=== PATIENT | male | born 1980 | race Asian ===

== ENCOUNTER 2020-10-17 23:55 | Outpatient (REF) | payer SELFPAY ==
[2020-10-19 11:29] LABS: COVID-19 RT-PCR UVMMC Result Negative (Negative)
== END 2020-10-17 23:56 | disposition home or self-care (01) ==
LOC: NCHCN 23:55
PROVIDERS: Visit Provider Nurse Practitioner Family
DX: J06.9 Acute upper respiratory infection, unspecified (principal); Z20.822 Contact with and (suspected) exposure to COVID-19
CPT/HCPCS: U0003

== ENCOUNTER 2022-04-27 18:11 | Emergency (ER) | payer BC, SELFPAY ==
[2022-04-27 18:21] VITALS: BP 143/86; PULSE 96; RESP 18; TEMP 36.7; O2SAT 96
[2022-04-27 18:26] VITALS: RESP 18
--- NOTE | 2022-04-27 18:37 | ED.GENADUL_ITS ---
Discharge Plan Disposition Patient Disposition: HOME Condition: Improving Discharge Details Clinical Impression: Hypertension Primary Care Provider: None,None ED Provider: Marino Martinez Home Meds and New Rx's Prescriptions: New loratadine [Claritin] 10 mg tablet 10 mg PO DAILY 7 Days Qty: 7 0RF pantoprazole [Protonix] 40 mg tablet,delayed release (DR/EC) 40 mg PO DAILY 30 Days Qty: 30 0RF Discharge Instructions Instructions: Hypertension (ED), DASH Eating Plan (ED) Additional Instructions: Continue to decrease cigarette use. Decrease salt in the diet, decrease fat in your diet. You need to increase use of fruits and vegetables and hydration. See enclosed information regarding the Dash diet. We will arrange follow-up for you in the community to establish care. Begin 30 minutes of exercise per day. Take Protonix as prescribed for 30 days. No eating 2 hours prior to bedtime. May use Benadryl 25 mg at bedtime for decongestion and Claritin as prescribed daily for 1 week. Medical Decision Making 41-year-old male presents with throbbing in his ears at home. He is worried for elevated blood pressure as he has had similar in the past and weaned off his medication 2 years ago without reestablishing care following his move to [place]. Is (143/86 he is well-appearing. His BMI is initially 38 with a weight of 100 and 0.5 kg. Discussed with him that his exam reveals fluid-filled sinuses, he describes history of GERD and some chronic cough. I will trial him on antacid as well as decongestant. We will arrange follow-up in the community to establish care. He will observe and improve diet, decrease his cigarette use and salt use. He is given information regarding the Dash diet. HPI General Mode of arrival: ambulatory . Date/Time Provider Initiated Documentation: 04/27/22 18:14 . Limitations to Documentation: no limitations . Information obtained by: patient and family . History of Present Illness 41 year old M presents to the emergency department with the chief complaint of Elevated blood pressure, described as mild, and is localized to the head and left. Patient reports no radiation. Patient started experiencing this hour(s) and it has been now resolved. No relieving factors improve symptom(s), No exacerbating factors reported . Patient notes no other symptoms.; denies chest pain, headaches, loss of appetite, nausea/vomiting, shortness of breath and weakness. Patient did receive the following treatmen ts prior to arrival, none Related Data Home Medications Medication Instructions Recorded Confirmed loratadine 10 mg tablet (Claritin) 10 mg PO DAILY 7 days #7 tabs 04/27/22 pantoprazole 40 mg tablet,delayed 40 mg PO DAILY 30 days #30 tabs 04/27/22 release (Protonix) Previous Rx's Medication Instructions Recorded loratadine 10 mg tablet (Claritin) 10 mg PO DAILY 7 days #7 tabs 04/27/22 pantoprazole 40 mg tablet,delayed 40 mg PO DAILY 30 days #30 tabs 04/27/22 release (Protonix) Allergies Allergy/AdvReac Type Severity Reaction Status Date / Time No Known Allergies Allergy Unverified 04/27/22 18:24 General Stated Complaint: GenMedical KIERA: 3 Review of Systems Narrative: Chronic cough and GERD. Used to take pressure medications. Has been observing a poor diet with high fat and salt. 7 systems reviewed and otherwise negative. See HPI. PFSH All Active Problems (Updated 04/27/22 @ 18:40 by Marino Martinez MD) Hypertension (Chronic) Social History Smoking/Tobacco Use Status: Current-Occasional Tobacco Type: cigarettes Smoking risk assessment performed?: Yes Alcohol Intake: current Alcohol Intake frequency: holidays/special occasions only Drug use: Never Substance use type: does not use Do you feel safe at home: Yes Do you feel safe in your relationship?: Yes Exam Narrative Exam Narrative: GEN: awake, alert, oriented 3. Pleasant, well groomed, interactive. HEAD: Normocephalic, atraumatic ENT: Mucous membranes moist, oropharynx unremarkable, left than right tympanic membranes are distended and fluid-filled, no significant erythema. EYES: PERRL, EOMI NECK: Full ROM, no ARIA, no menigismus CHEST/RESP: Nontender, clear to auscultation bilateral, no wheeze/rhonchi/rales CARDIOVASCULAR: RRR, no murmur, rub beatrice. 2+ Rad pulse bilateral ABDOMEN: Soft, nontender, no mass. +Bowel sounds EXT: Full ROM, no edema, no rash Neuro: Grossly normal neurologic exam, conversant, interactive. Psych: Speech fluent, thoughts congruent, affect normal Course Vital Signs Vital signs: Vital Signs Temperature 36.7 C 04/27/22 18:21 Pulse 96 H 04/27/22 18:21 Respiratory Rate 18 04/27/22 18:21 Blood Pressure 143/86 H 04/27/22 18:21 Pulse Oximetry 96 04/27/22 18:21 Temperature 36.7 C 04/27/22 18:21 Pulse 96 H 04/27/22 18:21 Respiratory Rate 18 04/27/22 18:26 Respiratory Effort Non-Labored 04/27/22 18:26 Respiratory Depth Normal 04/27/22 18:26 Respiratory Pattern Normal 04/27/22 18:26 Blood Pressure 143/86 H 04/27/22 18:21 Blood Pressure Position Sitting 04/27/22 18:21 Pulse Oximetry 96 04/27/22 18:21 Oxygen Delivery Method Room Air 04/27/22 18:21 Oxygen Flow Rate 0 04/27/22 18:21
--- NOTE | 2022-04-27 18:38 | NUR.NOTE ---
Nursing Note: Referral given to Care Management needs PCP; recheck high B/P, establish care; in 2 to 4 weeks.
--- NOTE | 2022-04-30 15:48 | CMACTNOTE_ITS ---
- If Service Date Differs Date of service: 04/30/22 Time of Service: 15:48 Care Management Activity Note Jorge Luis is seen in the ED for hypertension. At the request of ED provider, DELIO coordinates a referral to CHAN Warner, of [facility], on-call provider, to assist Jorge Luis in obtaining a follow up appointment and in establishing care with a PCP. He has BCBS for insurance.
== END 2022-04-27 23:16 | disposition home or self-care (01) ==
PROVIDERS: Emergency Provider Emergency Medicine
DX: I10 Essential (primary) hypertension (principal); F17.210 Nicotine dependence, cigarettes, uncomplicated; K21.9 Gastro-esophageal reflux disease without esophagitis; R05.3 Chronic cough
CPT/HCPCS: 99283; 99284

== ENCOUNTER 2023-02-25 15:42 | Outpatient (REF) | payer BC, SELFPAY ==
[2023-02-25 15:33] LABS: ALT 33 U/L (16-63); AST 25 U/L (15-37); Albumin 4.1 g/dL (3.4-5.0); Alkaline Phosphatase 73 U/L (46-116); Anion Gap 9.2 mmol/L (3-11); BUN 14 mg/dL (7-18); Bilirubin, Total 1.1 mg/dL (0.2-1.0); CO2 26.8 mmol/L (21.0-32.0); CREATININE 1.1 mg/dL (0.70-1.30); Calcium 9.3 mg/dL (8.5-10.1); Calculated LDL 112 mg/dL (<100); Chloride 103 mmol/L (98-107); Cholesterol 199 mg/dL (<200); Estimated GFR 84.89 (mL/min/1.73m2); Glucose 103 mg/dL (74-106); HDL Cholesterol 43 mg/dL (40-60); Potassium 3.9 mmol/L (3.5-5.1); Sodium 139 mmol/L (136-145); TSH (W/Ref FT4) 1.39 uIU/mL (0.36-3.74); Total Protein 7.2 g/dL (6.4-8.2); Triglyceride 224 mg/dL (<150)
== END 2023-02-25 15:43 | disposition home or self-care (01) ==
LOC: NCHCN 15:42
PROVIDERS: Visit Provider Family Medicine
DX: Z00.00 Encounter for general adult medical examination without abnormal findings (principal); I10 Essential (primary) hypertension
CPT/HCPCS: 80053; 80061; 84443

== ENCOUNTER 2023-03-10 13:00 | Outpatient (REF) | payer BC, SELFPAY ==
[2023-03-17 16:42] LABS: Testosterone, Total 216 ng/dL (240-950)
== END 2023-03-10 13:01 | disposition home or self-care (01) ==
LOC: NCHCN 13:00
PROVIDERS: Visit Provider Family Medicine
DX: N48.89 Other specified disorders of penis (principal); L91.8 Other hypertrophic disorders of the skin; G47.9 Sleep disorder, unspecified
CPT/HCPCS: 84402; 84403

== ENCOUNTER 2023-05-10 12:46 | Outpatient (REF) | payer BC, SELFPAY ==
--- NOTE | 2023-05-10 15:15 | SKI_PTH ---
PATIENT: Jorge Luis Abreu LOC: [facility] U#:[id number] AGE/SX: 42/M ROOM: RE05/10/[address]: Jeanne Lopez : 1980 BED: DIS: 05/10/2023 SPEC #: [id number] RECD: 05/11/23 12:54 STATUS: DORIS RETrisha #: [id number] NELSY: 05/10/23 15:[address]: Jeanne Lopez DEPT: Surgical Specimen RECD BY: Basia Marie Tissues: 1 - SKIN BIOPSY(SHAVE/PUNCH) Procedures: GROSS AND MICRO LEVEL 3 Comments: [id number]
== END 2023-05-10 12:47 | disposition home or self-care (01) ==
LOC: LBN 12:46
PROVIDERS: PCP Family Medicine; Visit Provider Family Medicine
DX: L72.0 Epidermal cyst (principal)
CPT/HCPCS: 88304; 88305

== ENCOUNTER 2023-08-23 15:23 | Outpatient (REF) | payer BC, SELFPAY ==
[2023-09-04 15:16] LABS: Testosterone, Total 864 ng/dL (240-950)
== END 2023-08-23 15:24 | disposition home or self-care (01) ==
LOC: NCHCN 15:23
PROVIDERS: PCP Family Medicine; Visit Provider Family Medicine
DX: E29.1 Testicular hypofunction (principal)
CPT/HCPCS: 84402; 84403

== ENCOUNTER 2024-04-12 19:06 | Emergency (ER) | payer OTHER, SELFPAY ==
[2024-04-12 19:09] VITALS: BP 154/98; PULSE 76; RESP 18; TEMP 36.7; O2SAT 96
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
--- OUTSIDE RECORDS SUMMARY | 2024-04-12 20:43 | XMS_ITS | Clinical Summary ---
Author Organization [facility] Address [address] [place] [address] Care Team Providers Care Data Capture Specialist Name Role Phone Jeanne Lopez MD Primary Care Provider Social History Tobacco Use Types Packs/Day Years Used Date Smoking Tobacco: Never Assessed Interpersonal Safety Answer Date Record ed Physically Hurt Never 10/19/2020 Verbally Threaten Not on file 10/19/2020 Sex and Gender Information Value Date Recorded Sex Assigned at Not on file Gender Identity Not on file Sexual Orientation Not on file Plan of Treatment Health Maintenance Due Date Last Done Comments Hepatitis C Screen 1980 Hepatitis B Vaccine (1 of 3 - 19+ 3-dose series) 05/19 COVID-19 Vaccine ( season) 2023 Care Teams Data Capture Specialist Relationship Specialty Start Date End Date Jeanne Lopez MD [address] [place] [address] PCP - General Family Medicine - Primary Care 04/13/23
--- OUTSIDE RECORDS SUMMARY | 2024-04-12 20:43 | XMS_ITS | Encounter Summary ---
Author Organization [facility] Address [address] [place] [address] Care Team Providers Care Corporate Accounting Manager Name Role Phone Jeanne Lopez MD Primary Care Provider [phone] Encounter Details Date Type Department Care Team (Late st Contact Info) Description 10/18/2020 Lab Requisition [facility] Pathology & [place] [address] Outr Resulting Lab, Provider Social History Tobacco Use Types Packs/Day Years Used Date Smoking Tobacco: Never Assessed Interpersonal Safety Answer Date Record ed Physically Hurt Never 10/19/2020 Verbally Threaten Not on file 10/19/2020 Sex and Gender Information Value Date Recorded Sex Assigned at Not on file Gender Identity Not on file Sexual Orientation Not on file documented as of this encounter Plan of Treatment Not on file documented as of this encounter Procedures Procedure Name Priority Date/Time Associated Diagnosis Comments ZZCOVID-19 TEST [facility] PCR Today 10/17/2020 13:30 EST COVID-19 TESTING Routine 10/17/2020 13:3 0 EST documented in this encounter Results * COVID-19 TEST [facility] PCR (10/17/2020 13:30 EST) Swab ENTIRE NASOPHARYNX / Unknown 10/17/2020 13:30 EST 10/18/2020 17:12 EST Provider Outr Resulting Lab MICROBIOLOGY - GENERAL ORDERABLES [facility] [address] [place] [address] * COVID-19 TESTING (10/17/2020 13:30 EST) COVID-19 rt-PCR Result Negative Negative 10/19/2020 11:25 EST [facility] Comment: This test has not been FDA cleared or approved. This test has been authorized by FDA under an EUA for use by authorized laboratories. This test has been authorized only for detection of nucleic acid from 2019-nCoV, not for any other viruses or pathogens. This test is only authorized for the duration of the declaration that circumstances exist justifying the authorization of emergency use of in vitro diagnostic tests for detection and/or diagnosis of 2019-nCoV under section 564(b)(1) of Act, 21 U.S.C ?? 360bbb-3(b) (1), unless the authorization is terminated or revoked sooner. Negative results do not preclude 2019-nCoV infection and should not be used as the sole basis for treatment or other patient management decisions. Negative results must be combined with clinical observations, patient history, and epidemiological information. Testing was performed using the bhaskar SARS-CoV-2 assay ([employer] on the Bhaskar 6800 System Performing Lab Bhaskar 6800 [facility] 10/19/2020 11:25 EST [facility] Swab 10/17/2020 13:3 0 EST 10/18/2020 17:12 EST Provider Outr Resulting Lab MICROBIOLOGY - GENERAL ORDERABLES [facility] [address] [place] [address] documented in this encounter Visit Diagnoses Not on filedocumented in this encounter Care Teams Corporate Accounting Manager Relationship Specialty Start Date End Date Jeanne Lopez MD [address] [place] [address] PCP - General Family Medicine - Primary Care 04/13/23 documented as of this encounter
--- OUTSIDE RECORDS SUMMARY | 2024-04-12 20:43 | XMS_ITS | Referral Summary ---
Author Organization [facility] Address [address] [place] [address] Care Team Providers Care Business Support Administrator Name Role Phone Jeanne Lopez MD Primary Care Provider [phone] Social History Tobacco Use Types Packs/Day Years Used Date Smoking Tobacco: Never Assessed Interpersonal Safety Answer Date Record ed Physically Hurt Never 10/19/2020 Verbally Threaten Not on file 10/19/2020 Sex and Gender Information Value Date Recorded Sex Assigned at Not on file Gender Identity Not on file Sexual Orientation Not on file Plan of Treatment Not on file Care Teams Business Support Administrator Relationship Specialty Start Date End Date Jeanne Lopez MD [address] [place] [phone] PCP - General Family Medicine - Primary Care 04/13/23
--- OUTSIDE RECORDS SUMMARY | 2024-04-12 20:43 | XMS_ITS | Encounter Summary ---
Author Organization [facility] Address [address] [place] [address] Care Team Providers Care Geophysics Teacher Name Role Phone Jeanne Lopez MD Primary Care Provider [phone] Encounter Details Date Type Department Care Team (Late st Contact Info) Description 05/11/2023 Lab Requisition [facility] Pathology & Laboratory Medicine - [address] [address] Jeanne Lopez MD [address] [place] [phone] Encounter for other general examination Social History Tobacco Use Types Packs/Day Years [...] Procedure Name Priority Date/Time Associated Diagnosis Comments SURGICAL PATHOLOGY Today 05/10/2023 15 :15 EDT Encounter for other general examination documented in this encounter Results * SURGICAL PATHOLOGY (05/10/2023 15:15 EDT) Note to Patient The following pathology results have been interpreted by your pathologist and may be available to you before your health provider has had the opportunity to review them. Please allow time for your provider to receive these results and explore management options, if applicable. 05/13/2023 14:[address] [facility] Final Diagnosis A. SKIN OF CHEST WALL, LEFT, EXCISION: - Epidermal inclusion cyst. 05/13/2023 14:[address] [facility] Attestation By the signature below, the attending physician certifies that they have 1) personally conducted a gross and/or microscopic examination of the described specimen(s), and/or personally interpreted the results of laboratory testing of the described specimen(s), and 2) personally rendered or confirmed the above diagnosis. 05/13/2023 14:24 [facility] at 1424 Clinical History 1 cm sebaceous cyst left chest wall 05/13/2023 14:24 [facility] Gross Description A. Received in formalin labelled with proper patient identification (initials B, J) and L chest is an intact firm cystic structure (0.6 x 0.6 x 0.5 cm) with an attached overlying ellipse of mcarthur skin (0.7 x 0.4 cm). On the central skin surface is a pore 0.1 cm in diameter extending into the deep soft tissue. The outer surface is inked blue. The cyst contains mcarthur-brown soft friable material and the inner lining is smooth with a wall thickness of 0.1 cm. Submitted entirely in A1. RAYMUNDO GLOVER(ASCP) 05/12/2023 10:45 05/13/2023 14:[address] [facility] Performing Lab [facility] 05/13/2023 14:24 [facility] Scanned Images 05/13/2023 14:24 [facility] Tissue SPECIMEN FROM SKIN / Unknown 05/10/2023 15:15 EDT 05/11/2023 17:55 EDT Jeanne Lopez MD PATHOLOGY ORDERABLES [facility] [address] [place] [address] documented in this encounter Visit Diagnoses Diagnosis Encounter for other general examination documented in this encounter Care Teams Geophysics Teacher Relationship Specialty Start Date End Date Jeanne Lopez MD [address] [place] [phone] PCP - General Family Medicine - Primary Care 04/13/23 documented as of this encounter
[2024-04-12] MEDS: Fluorescein STRIPS 100/BOX 1 MG OP (22:19)
[2024-04-12] MEDS: Erythromycin Ophth Oint 3.5 GM TUBE OD (22:20)
[2024-04-12] MEDS: Erythromycin Ophth Oint 3.5 GM TUBE (22:20)
== END 2024-04-12 22:22 | disposition home or self-care (01) ==
PROVIDERS: Emergency Provider Emergency Medicine; PCP Family Medicine
DX: T54.3X1A Toxic effect of corrosive alkalis and alkali-like substances, accidental (unintentional), initial encounter (principal); H57.11 Ocular pain, right eye; Y92.89 Other specified places as the place of occurrence of the external cause; Y99.0 Civilian activity done for income or pay; F17.210 Nicotine dependence, cigarettes, uncomplicated
CPT/HCPCS: 99283

== ENCOUNTER 2024-04-26 19:29 | Outpatient (REF) | payer BC, SELFPAY ==
--- OUTSIDE RECORDS SUMMARY | 2024-04-26 19:31 | XMS_ITS | Clinical Summary ---
Author Organization [facility] Address [address] [place] [address] Care Team Providers Care Sales Project Administrator Name Role Phone Jeanne Lopez MD Primary Care Provider [phone] Social History Tobacco Use Types Packs/Day Years [...] COVID-19 Vaccine ( season) 2023 Care Teams Sales Project Administrator Relationship Specialty Start Date End Date Jeanne Lopez MD [address] [place] [address] PCP - General Family Medicine - Primary Care 04/13/23
--- OUTSIDE RECORDS SUMMARY | 2024-04-26 19:31 | XMS_ITS | Referral Summary ---
Author Organization [facility] Address [address] [place] [address] Care Team Providers Care Front End Assistant Name Role Phone Jeanne Lopez MD Primary Care Provider [phone] Social History Tobacco Use Types Packs/Day Years Used Date Smoking Tobacco: Never Assessed Interpersonal Safety Answer Date Record ed Physically Hurt Never 10/19/2020 Verbally Threaten Not on file 10/19/2020 Sex and Gender Information Value Date Recorded Sex Assigned at Not on file Gender Identity Not on file Sexual Orientation Not on file Plan of Treatment Not on file Care Teams Front End Assistant Relationship Specialty Start Date End Date Jeanne Lopez MD [address] [place] [phone] PCP - General Family Medicine - Primary Care 04/13/23
--- OUTSIDE RECORDS SUMMARY | 2024-04-26 19:31 | XMS_ITS | Encounter Summary ---
Author Organization [facility] Address [address] [place] [address] Care Team Providers Care Security Operations Specialist Name Role Phone Jeanne Lopez MD Primary Care Provider [phone] Encounter Details Date Type Department Care Team (Late st Contact Info) Description 10/18/2020 Lab Requisition [facility] Pathology & [place] [address] Outr Resulting Lab, Provider Social History Tobacco [...] Outr Resulting Lab MICROBIOLOGY - GENERAL ORDERABLES [facility] [address] [place] [address] * COVID-19 TESTING (10/17/2020 13:30 EST) COVID-19 rt-PCR Result Negative Negative 10/19/2020 11:25 EST [facility] Comment: This test has not [...] performed using the bhaskar SARS-CoV-2 assay ([employer] on the Bhaskar 6800 System Performing Lab Bhaskar [address] [facility] 10/19/2020 11:25 EST [facility] Swab 10/17/2020 13:3 0 EST 10/18/2020 17:12 EST Provider Outr Resulting Lab MICROBIOLOGY - GENERAL ORDERABLES [facility] [address] [place] [address] documented in this encounter Visit Diagnoses Not on filedocumented in this encounter Care Teams Security Operations Specialist Relationship Specialty Start Date End Date Jeanne Lopez MD [address] [place] [address] PCP - General Family Medicine - Primary Care 04/13/23 documented as of this encounter
--- OUTSIDE RECORDS SUMMARY | 2024-04-26 19:31 | XMS_ITS | Encounter Summary ---
Author Organization [facility] Address [address] [place] [address] Care Team Providers Care Operator Name Role Phone Jeanne Lopez MD Primary Care Provider [phone] Encounter Details Date Type Department Care Team (Late st Contact Info) Description 05/11/2023 Lab Requisition [facility] Pathology & Laboratory Medicine - [address] [address] Jeanne Lopez MD [address] [place] [phone] Encounter for other general examination Social History [...] management options, if applicable. 05/13/2023 14:24 EDT [facility] Final Diagnosis A. SKIN OF CHEST WALL, LEFT, EXCISION: - Epidermal inclusion cyst. 05/13/2023 14:24 EDT [facility] Attestation By the signature below, the attending physician certifies that they have 1) personally conducted a gross and/or microscopic examination of the described specimen(s), and/or personally interpreted the results of laboratory testing of the described specimen(s), and 2) personally rendered or confirmed the above diagnosis. 05/13/2023 14:24 [facility] at 1424 Clinical History 1 cm sebaceous cyst left chest wall 05/13/2023 14:24 [facility] Gross Description A. Received in [...] RAYMUNDO GLOVER(ASCP) 05/12/2023 10:45 05/13/2023 14:24 T [facility] Performing Lab [facility] 05/13/2023 14:24 [facility] Scanned Images 05/13/2023 14:24 [facility] Tissue SPECIMEN FROM SKIN / Unknown 05/10/2023 15:15 EDT 05/11/2023 17:55 EDT Jeanne Lopez MD PATHOLOGY ORDERABLES [facility] [address] [place] [address] documented in this encounter Visit Diagnoses Diagnosis Encounter for other general examination documented in this encounter Care Teams Operator Relationship Specialty Start Date End Date Jeanne Lopez MD [address] [place] [phone] PCP - General Family Medicine - Primary Care 04/13/23 documented as of this encounter
[2024-04-26 21:10] LABS: HCT 43.4 % (40.0-50.0); HGB 14.6 g/dL (13.5-17.5); MCH 31.1 pg (27.0-33.0); MCHC 33.6 % (32.0-36.0); MCV 92 fL (80-95); MPV 10.5 fL (8.0-11.0); Platelet Count 202 10^3/uL (130-400); RDW 12.2 % (11.8-14.1); RDW-SD 41.7 fL; WBC 8.82 10^3/uL (4.4-10.8)
[2024-04-26 21:27] LABS: ALT 27 U/L (16-63); AST 21 U/L (15-37); Albumin 4.1 g/dL (3.4-5.0); Alkaline Phosphatase 76 U/L (46-116); Anion Gap 11.9 mmol/L (3-11); BUN 16 mg/dL (7-18); Bilirubin, Total 0.76 mg/dL (0.2-1.0); CO2 24.1 mmol/L (21.0-32.0); CREATININE 1.2 mg/dL (0.70-1.30); Calcium 9.2 mg/dL (8.5-10.1); Chloride 106 mmol/L (98-107); Glucose 101 mg/dL (74-106); Potassium 4.1 mmol/L (3.5-5.1); Sodium 142 mmol/L (136-145); Total Protein 7.1 g/dL (6.4-8.2)
[2024-05-12 17:17] LABS: Testosterone, Free 6.47 ng/dL (4.26-16.4); Testosterone, Total 198 ng/dL (240-950)
== END 2024-04-26 19:30 | disposition home or self-care (01) ==
LOC: NCHCN 19:29
PROVIDERS: PCP Family Medicine; Visit Provider Family Medicine
DX: E29.1 Testicular hypofunction (principal)
CPT/HCPCS: 80053; 84402; 84403; 85027

== ENCOUNTER 2024-12-15 15:45 | Emergency (ER) | payer BC, SELFPAY ==
[2024-12-15 15:48] VITALS: BP 150/92; PULSE 71; RESP 18; TEMP 36.8; O2SAT 97
[2024-12-15 15:51] VITALS: BP 150/92; PULSE 71; RESP 18; TEMP 36.8; O2SAT 97
--- NOTE | 2024-12-15 16:05 | ED.GENADUL_ITS ---
Discharge Plan Disposition Patient Disposition: Home Condition: Stable Discharge Details Clinical Impression: Dental infection Primary Care Provider: Jeanne Lopez ED Provider: Bhavani Ahmadi Home Meds and New Rx's Prescriptions: New amoxicillin-pot clavulanate 875-125 mg tablet 1 tab PO BID 10 Days Qty: 20 0RF No Action testosterone cypionate [Depo-Testosterone] .Route Patient Comments: pt states testosterone IM every two weeks, does not know dosage. 04/12/24 Discharge Instructions Instructions: Tooth Abscess ED Additional Instructions: Please take the antibiotic twice daily with yogurt or probiotic as directed. Use the HurriCaine gel topically as needed up to 3 times daily. Please gargle with warm salt water up to 3 times daily. Please take Tylenol or Ibuprofen with food every 4-6 hours as needed for pain and swelling. You do still need to see a dentist for further evaluation and treatment. Thank you for allowing us to care for you today. Return to ED sooner if any worsening swallowing, trouble breathing, change in voice, fever or concerns. Stand Alone Forms: Work Release Referrals: Jeanne Lopez [Primary Care Provider] - 1 week HPI General Mode of arrival: ambulatory . Date/Time Provider Initiated Documentation: 12/15/24 15:52 . Limitations to Documentation: no limitations . Information obtained by: patient, RN notes reviewed and old records reviewed . HPI Narrative: 44-year-old male presents to the ER with a chief complaint of left jaw swelling over the last 3 to 4 days. He also notes some swelling of his gum around his left posterior molars. He reports over the last 24 hours he has noted that when he spits there is flecks of blood in his spit and he is having some left sided throat pain. Denies any fever or chills, he is speaking in full sentences no stridor noted. Denies any shortness of breath. He is handling his secretions without difficulty. He has not taken any Tylenol or ibuprofen or any medications for this. He reports only pain when chewing or swallowing. Related Data Home Medications ?Medication ?Instructions ?Recorded ?Confirmed testosterone cypionate .Route 04/12/24 amoxicillin 875 mg-potassium 1 tab PO BID 10 days #20 tabs 12/15/24 clavulanate 125 mg tablet Previous Rx's ?Medication ?Instructions ?Recorded amoxicillin 875 mg-potassium 1 tab PO BID 10 days #20 tabs 04/04/25 clavulanate 125 mg tablet Allergies Allergy/AdvReac Type Severity Reaction Status Date / Time No Known Allergies Allergy Unverified 12/15/24 15:51 General Stated Complaint: DentalOral KIERA: 4 Review of Systems ENT Ears, Nose, Mouth, and Throat: Reports mouth pain, Reports neck mass and Reports sore throat Exam Const General: cooperative, healthy appearing and comfortable Nutritional Appearance: average body habitus Orientation: alert, awake and oriented x3 HENMT Head: normal to inspection General nose exam: external nose normal and nares normal Face and sinus: tenderness on the left submandibular Face images: 2 1. Mild swelling palpated Mouth: tongue normal and no muffled voice Teeth and gingiva: gingiva abnormal (Swelling of the gingiva and left inner cheek over the posterior molars) edematous, tender and other (No dental abscess area of fluctuance or drainable abscess noted.); without any purulent discharge Throat: uvula midline and posterior oropharynx abnormal erythema; no exudates Resp Effort & Inspection: normal respiratory effort and able to speak in complete sentences Auscultation: clear to auscultation bilaterally Cardio Palpation: normal PMI Rate: regular rate Rhythm: regular rhythm Heart Sounds: S1 normal and S2 normal Course Vital Signs Vital signs: Vital Signs Temperature 36.8 C 12/15/24 15:48 Pulse 71 12/15/24 15:48 Respiratory Rate 18 12/15/24 15:48 Blood Pressure 150/92 H 12/15/24 15:48 Pulse Oximetry 97 12/15/24 15:48 Temperature 36.8 C 12/15/24 15:51 Pulse 71 12/15/24 15:51 Respiratory Rate 18 12/15/24 15:51 Blood Pressure 150/92 H 12/15/24 15:51 Pulse Oximetry 97 12/15/24 15:51 Pain Level 4 12/15/24 15:56 Medical Decision Making 44-year-old male presents to the ER with a chief complaint of left jaw swelling over the last 3 to 4 days. He also notes some swelling of his gum around his left posterior molars. He reports over the last 24 hours he has noted that when he spits there is flecks of blood in his spit and he is having some left sided throat pain. Denies any fever or chills, he is speaking in full sentences no stridor noted. Denies any shortness of breath. He is handling his secretions without difficulty. He has not taken any Tylenol or ibuprofen or any medications for this. He reports only pain when chewing or swallowing. I do suspect the patient may have bit the left side of his cheek causing the blood however I cannot rule out a dental infection at this time due to the jaw swelling. Will place him on Augmentin give him HurriCaine gel and instruct him to follow-up with a dentist. I also discussed salt water gargles she verbalized understanding. Will give strict return instructions to return for any worsening trouble swallowing, fever or chills, change in voice or any concerns. Patient discharged in hemodynamically stable condition. This text was generated using [employer] dictation system, please disregard any oddities of phrase or misspellings. Quality:SDOH Health Related Social Needs: 2 No Data to Display PFSH All Active Problems (Updated 12/15/24 @ 16:16 by Bhavani Ahmadi NP) Dental infection (Acute) Social History Smoking/Tobacco Use Status: Current-Occasional Tobacco Type: cigarettes Smoking risk assessment performed?: Yes Alcohol Intake: current Alcohol Intake frequency: holidays/special occasions only Drug use: Never Substance use type: does not use Do you feel safe at home: Yes Do you feel safe in your relationship?: Yes
[2024-12-15] MEDS: Amox. 875/Clav. 125, 2 TABS/BTL 1 TAB PO (16:19)
[2024-12-15] MEDS: Benzocaine 20% Gel 30 GM JAR MM (16:20)
[2024-12-15] MEDS: Amoxicillin 875/Clav. 125 TAB PO (16:20)
[2024-12-15 16:28] VITALS: BP 151/99; PULSE 71; RESP 16; TEMP 36.8; O2SAT 99
== END 2024-12-15 16:30 | disposition home or self-care (01) ==
PROVIDERS: Emergency Provider Registered Nurse Emergency; PCP Family Medicine
DX: R68.84 Jaw pain (principal); K04.7 Periapical abscess without sinus
CPT/HCPCS: 99283